=== PATIENT | female | born 1995 | race Asian ===

== ENCOUNTER 2018-08-01 20:42 | Emergency (ER) | payer OTHER ==
[~2018-08-01] VITALS: Ht 154.9 cm; Wt 47.7 kg
[2018-08-01] MEDS ORDERED: BIRTH CONTROL PILL PO (20:52)
[2018-08-01] MEDS ORDERED: KETOROLAC TROMETHAMINE 60 MG/2 ML VIAL IM ONE (21:45)
[2018-08-01 23:00] VITALS: BP 124/69
== END 2018-08-01 23:42 | disposition home or self-care (01) ==
LOC: EMS 20:45
DX: S40.011A Contusion of right shoulder, initial encounter (principal); S30.811A Abrasion of abdominal wall, initial encounter; Z91.018 Allergy to other foods; Z88.8 Allergy status to other drugs, medicaments and biological substances; W18.39XA Other fall on same level, initial encounter; Y93.89 Activity, other specified; Y92.89 Other specified places as the place of occurrence of the external cause; Y99.8 Other external cause status
CPT/HCPCS: 73060; 81025; 96372; 99284; J1885